=== PATIENT | male | born 1955 | race Caucasian/White ===

== ENCOUNTER 2018-08-14 05:20 | Day surgery (SDC) | payer BC ==
[2018-08-14] MEDS ORDERED: Midazolam 1 MG/ML 2 ML SDV IV ONE ×3 (05:21→06:35)
[2018-08-14] MEDS ORDERED: fentaNYL 100 MCG/2 ML SDV IV ONE ×3 (05:21→06:34)
[2018-08-14] MEDS ORDERED: Dextrose 5%-0.45% NaCl 1,000 ML IV SCH (05:54)
[2018-08-14] MEDS ORDERED: Midazolam 1 MG/ML 2 ML SDV ONE (06:16)
[2018-08-14] MEDS ORDERED: fentaNYL 100 MCG/2 ML SDV ONE (06:17)
--- NOTE | 2018-08-14 13:00 | OR ---
DATE: 08/14/2018 PROCEDURE PERFORMED: Esophagogastroduodenoscopy and NBI. INSTRUMENT USED: [id number]-[id number] Olympus video panendoscope. PREMEDICATIONS: Fentanyl 100 mcg intravenous, Versed 2 mg intravenous. The procedure was done under pulse oximetry, BP recording, and personnel monitor. INDICATION: The patient with unexplained iron-deficiency. Esophagogastroduodenoscopy was performed for detection of any active erosive lesions, Benitez esophagus and/or malignancy also under consideration, small bowel biopsies to be obtained for celiac disease if indicated, endoscopic hemostasis therapy if needed. DESCRIPTION OF PROCEDURE: The scope was passed with ease. Adequate visualization of the esophagus was made from proximal to distal areas. No upper esophageal lesions identified. No distal esophageal stricture. No uphill or downhill esophageal varices. No Afia-Byrne tear. No evidence of erosive esophagitis by [place] criteria. No esophageal polyp or tumor mass identified. Z-line was seen at around 40 cm distal to the oral verge. No proximal gastric varices noted. Paraesophageal hiatal hernia was noted. Scattered Augustin's erosions were seen without bleeding from them, NBI views were obtained. Photographs were taken. No gastric ulcer, malignant mass, or vascular ectasia identified. Duodenal bulb showed no ulcer. Visualized second part of the duodenum was unremarkable. No bleeding was noted from any of the visualized areas at the completion of examination. Photographs were taken of the duodenal bulb, gastric antrum, fundus, and distal esophagus. IMPRESSION: 1. Paraesophageal hiatal hernia. 2. Augustin's erosions. The patient tolerated the procedure well. [facility] /[id number]
--- NOTE | 2018-08-14 13:36 | LETTER ---
08/14/2018 Tania Birch MD [facility] [address] [facility] [place] [address] RE: JUSTICE ACHARYA : [address] Birch: Mr. Justice Acharya had esophagogastroduodenoscopy done this morning and he tolerated the procedure well. I herewith send a copy of the endoscopy note and photographs for your review. He is put on omeprazole 20 mg p.o. daily. Thank you. Sincerely, [facility] /[id number]
== END 2018-08-14 08:45 | disposition home or self-care (01) ==
LOC: DL.ENDO 05:20
PROVIDERS: ATTEND Internal Medicine Gastroenterology
DX: D50.9 Iron deficiency anemia, unspecified (principal); K25.9 Gastric ulcer, unspecified as acute or chronic, without hemorrhage or perforation; K44.9 Diaphragmatic hernia without obstruction or gangrene; I10 Essential (primary) hypertension; E78.5 Hyperlipidemia, unspecified; K43.9 Ventral hernia without obstruction or gangrene; C91.90 Lymphoid leukemia, unspecified not having achieved remission; F41.1 Generalized anxiety disorder; Z79.899 Other long term (current) drug therapy
CPT/HCPCS: 43235; J7042; J2250; J3010

== ENCOUNTER 2018-08-16 05:20 | Day surgery (SDC) | payer BC ==
[2018-08-16] MEDS ORDERED: Midazolam 1 MG/ML 2 ML SDV IV ONE ×5 (05:21→06:35)
[2018-08-16] MEDS ORDERED: fentaNYL 100 MCG/2 ML SDV IV ONE ×3 (05:21→06:29)
[2018-08-16] MEDS ORDERED: Dextrose 5%-0.45% NaCl 1,000 ML IV SCH (05:50)
[2018-08-16] MEDS ORDERED: Midazolam 1 MG/ML 2 ML SDV ONE (06:15)
[2018-08-16] MEDS ORDERED: fentaNYL 100 MCG/2 ML SDV ONE (06:15)
--- NOTE | 2018-08-16 07:40 | OR ---
DATE: 08/16/2018 PROCEDURE: Total colonoscopy. INSTRUMENT USED: [id number] Olympus video colonoscope. PREMEDICATIONS: Fentanyl 100 mcg intravenous and versed 3 mg intravenous. 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 INDICATION: The patient with iron deficiency. Colonoscopic examination is done for detection of any polypoid lesions and removal, endoscopic hemostasis therapy if needed. DESCRIPTION OF PROCEDURE: Initial rectal exam showed considerable anal sphincter spasm. Limited rigid anoscopic examination was unremarkable. The colonoscope was passed with ease up to the ileocecal area, photographs were taken of the normal appearing cecum, identified by double-bulged ileocecal folds. No bleeding was noted from any of the visualized areas at the commencement of the examination. The bowel preparation was found to be adequate, [place] Scale 3. No stricture, no vascular ectasia. No large isolated ulceration seen. No evidence of diffuse inflammatory bowel disease in the form of friability, contact bleeding, or ulcerations. No polyp or tumor mass identified. Probing the proximal sides of folds and flexures, using adequate distention and clearing up the stool material, withdrawal of the scope was made. [id number] time over 6 minutes. No bleeding was noted from any of the visualized areas at the completion of the examination. IMPRESSION: Normal study. The patient tolerated the procedure well. [facility] /[id number]
--- NOTE | 2018-08-16 12:48 | LETTER ---
08/16/2018 Tania Birch MD [facility] [address] [place] [address] RE: JUSTICE ACHARYA : [address] Birch: Mr. Justice Acharya had colonoscopic examination done this morning and he tolerated the procedure well. I herewith send a copy of the endoscopy note and photographs for your review. Thank you. Sincerely, [facility] /[id number]
== END 2018-08-16 08:39 | disposition home or self-care (01) ==
LOC: DL.ENDO 05:20
PROVIDERS: ATTEND Internal Medicine Gastroenterology
DX: D50.9 Iron deficiency anemia, unspecified (principal); I10 Essential (primary) hypertension; E78.5 Hyperlipidemia, unspecified; C91.90 Lymphoid leukemia, unspecified not having achieved remission; K43.9 Ventral hernia without obstruction or gangrene; F41.1 Generalized anxiety disorder
CPT/HCPCS: 45378; J2250; J3010; J7042

== ENCOUNTER 2019-12-08 12:28 | Emergency (ER) | payer BC ==
--- NOTE | 2019-12-08 12:26 | EDM.PDOC ---
ED HPI GENERAL MEDICAL PROBLEM - General Chief Complaint: Abdominal Pain Stated Complaint: RIGHT SIDE AB PAIN Time Seen by Provider: 12/08/19 12:30 Source of Information: Reports: Patient, Provider History Limitations: Reports: No Limitations - History of Present Illness INITIAL COMMENTS - FREE TEXT/NARRATIVE: This 63 yo male patient was sent to the ED by Dr. Richter due to right sided abdominal pain that has been getting worse. Dr. Richter assessed the patient in the clinic and referred the patient to the ED due to the above pain, tachycardia and a temp of 99.5. The patient reports his abdominal pain started on 12/06/19 and has been getting worse. The patient reports his pain is more of an irritant unless he gets up and walks around. The patient reports increased pain with stepping on his right foot. The patient reports he had a piece of toast and a glass of water this morning at 0930. The patient has a history of hypertension, hyperlipidemia, CLL and GERD. Onset: Other Onset Date: 12/06/19 Duration: Intermittent Location: Reports: Abdomen Quality: Reports: Ache, Sharp Severity: Moderate Improves with: Reports: None Worsens with: Reports: None Context: Reports: Other Associated Symptoms: Reports: No Other Symptoms Right Abdomen Pain Score (Numeric/FACES): 5 - Related Data Allergies Allergy/AdvReac Type Severity Reaction Status Date / Time No Known Allergies Allergy Verified 08/15/18 11:10 Home Meds: Home Meds Bromfenac Sodium 1 drop EYERT BEDTIME 08/14/18 [History] Finasteride 5 mg PO BEDTIME 08/14/18 [History] Moexipril [Univasc] 15 mg PO DAILY 08/14/18 [History] Multivitamin [Multi-Vitamin Daily] 1 tab PO DAILY 08/14/18 [History] Tamsulosin [Flomax] 0.4 mg PO BEDTIME 08/14/18 [History] atorvaSTATin [Lipitor] 5 mg PO BEDTIME 08/14/18 [History] hydroCHLOROthiazide [Hydrochlorothiazide] 25 mg PO DAILY 08/14/18 [History] Omeprazole 20 mg PO DAILY 08/16/18 [History] Past Medical History HEENT History: Reports: Other (See Below) Other HEENT History: retina tear Cardiovascular History: Reports: High Cholesterol, Hypertension Respiratory History: Reports: None Gastrointestinal History: Reports: Hemorrhoids Genitourinary History: Reports: BPH Musculoskeletal History: Reports: None Neurological History: Reports: None Psychiatric History: Reports: None Endocrine/Metabolic History: Reports: None Hematologic History: Reports: Anemia Immunologic History: Reports: None Oncologic (Cancer) History: Reports: Leukemia, Other (See Below) Other Oncologic History: CLL Dermatologic History: Reports: None - Infectious Disease History Infectious Disease History: Reports: Chicken Pox, Measles, Other (See Below) Other Infectious Disease History: bacterial infection in colon - Past Surgical History Head Surgeries/Procedures: Reports: None HEENT Surgical History: Reports: Other (See Below) Other HEENT Surgeries/Procedures: repair of retina tear Cardiovascular Surgical History: Reports: None Respiratory Surgical History: Reports: None GI Surgical History: Reports: Colonoscopy, Hernia, Inguinal Male Surgical History: Reports: Prostate Biopsy Social & Family History - Tobacco Use Smoking Status *Q: Never Smoker Second Hand Smoke Exposure: No - Caffeine Use Caffeine Use: Reports: None Caffeine Use Comment: 4 cups daily - Recreational Drug Use Recreational Drug Use: No ED ROS GENERAL - Review of Systems Review Of Systems: Comprehensive ROS is negative, except as noted in HPI. ED EXAM, GI/ABD - Physical Exam Exam: See Below Exam Limited By: No Limitations General Appearance: Alert, WD/WN, Moderate Distress Eyes: Bilateral: Normal Appearance, EOMI Ears: Normal External Exam, Normal Canal, Hearing Grossly Normal, Normal TMs Nose: Normal Inspection, Normal Mucosa, No Blood Throat/Mouth: Normal Inspection, Normal Lips, Normal Teeth, Normal Gums, Normal Oropharynx, Normal Voice, No Airway Compromise Head: Atraumatic, Normocephalic Neck: Normal Inspection, Supple, Non-Tender, Full Range of Motion Respiratory/Chest: No Respiratory Distress, Lungs Clear, Normal Breath Sounds, No Accessory Muscle Use, Chest Non-Tender Cardiovascular: Normal Peripheral Pulses, Regular Rate, Rhythm, No Edema, No Gallop, No JVD, No Murmur, No Rub GI/Abdominal Exam: Normal Bowel Sounds, No Organomegaly, No Distention, No Abnormal Bruit, Tender (RLQ) (Male) Exam: Deferred Rectal (Males) Exam: Deferred Back Exam: Normal Inspection, Full Range of Motion, NT Extremities: Normal Inspection, Normal Range of Motion, Non-Tender, Normal Capillary Refill, No Pedal Edema Neurological: Alert, Oriented, CN II-XII Intact, Normal Cognition, Normal Gait, Normal Reflexes, No Motor/Sensory Deficits Psychiatric: Normal Affect, Normal Mood Skin Exam: Warm, Dry, Intact, Normal Color, No Rash Lymphatic: No Adenopathy Course - Vital Signs Last Recorded V/S: Last Vital Signs Temp 37.3 C 12/08/19 12:16 Pulse 104 H 12/08/19 12:16 Resp 18 12/08/19 12:16 BP 154/99 H 12/08/19 12:16 Pulse Ox 94 L 12/08/19 12:16 - Orders/Labs/Meds Orders: Active Orders 24 hr Category Date Time Status CULTURE BLOOD [BC] Stat Lab 12/08/19 12:35 Received UA RFX EULOGIO AND CULT IF INDIC [URIN] Urgent Lab 12/08/19 12:10 Ordered UA W/MICROSCOPIC [URIN] Urgent Lab 12/08/19 12:10 Ordered Labs: Laboratory Tests 12/08/19 12/08/19 12/08/19 Range/Units 12:10 12:35 12:35 WBC 71.7 H* (5.0-10.0) 10^3/uL RBC 5.19 (4.6-6.2) 10^6/uL Hgb 15.7 (14.0-18.0) g/dL Hct 48.9 (40.0-54.0) % MCV 94.2 (80-100) fL MCH 30.3 (27.0-34.0) pg MCHC 32.1 L (33.0-35.0) g/dL Plt Count 232 (150-450) 10^3/uL Neut % (Auto) 13.3 L (42.2-75.2) % Lymph % (Auto) 85.4 H (20.5-50.1) % [place] % (Auto) 1.2 L (2-8) % Eos % (Auto) 0.1 L (1.0-3.0) % Baso % (Auto) 0.0 (0.0-1.0) % Add Manual Diff Yes Neutrophils % (Manual) 12 L (42-75) % Band Neutrophils % 2 % Lymphocytes % (Manual) 85 H (20-50) % Sodium 135 L (136-145) mmol/L Potassium 4.0 (3.5-5.1) mmol/L Chloride 98 (98-107) mmol/L Carbon Dioxide 28 (21-32) mmol/L Anion Gap 13.0 (7-13) mEq/L BUN 26 H (7-18) mg/dL Creatinine 0.94 (0.70-1.30) mg/dL Est Cr Clr Drug Dosing 92.30 mL/min Estimated GFR (MDRD) > 60 BUN/Creatinine Ratio 27.7 (No establ ref range) Glucose 119 H (74-99) mg/dL Lactic Acid (0.4-2.0) mmol/L Calcium 9.5 (8.5-10.1) mg/dL Total Bilirubin 1.4 H (0.2-1.0) mg/dL AST 18 (15-37) U/L ALT 39 (16-63) U/L Alkaline Phosphatase 84 (46-116) U/L Total Protein 8.3 H (6.4-8.2) g/dL Albumin 3.8 (3.4-5.0) g/dL Globulin 4.5 Albumin/Globulin Ratio 0.8 Urine Color Kelsea (YELLOW) Urine Appearance Slightly cloudy (CLEAR) Urine pH 7.0 (5.0-9.0) Ur Specific [place] 1.015 (1.005-1.030) Urine Protein Trace H (NEGATIVE) Urine Glucose (UA) Negative (NEGATIVE) Urine Ketones 15 H (NEGATIVE) Urine Occult Blood Trace-lysed H (NEGATIVE) Urine Nitrite Negative (NEGATIVE) Urine Bilirubin Negative (NEGATIVE) Urine Urobilinogen 0.2 (0.2-1.0) mg/dL Ur Leukocyte Esterase Negative (NEGATIVE) 12/07/ Range/Units 12:35 WBC (5.0-10.0) 10^3/uL RBC (4.6-6.2) 10^6/uL Hgb (14.0-18.0) g/dL Hct (40.0-54.0) % MCV (80-100) fL MCH (27.0-34.0) pg MCHC (33.0-35.0) g/dL Plt Count (150-450) 10^3/uL Neut % (Auto) (42.2-75.2) % Lymph % (Auto) (20.5-50.1) % [place] % (Auto) (2-8) % Eos % (Auto) (1.0-3.0) % Baso % (Auto) (0.0-1.0) % Add Manual Diff Neutrophils % (Manual) (42-75) % Band Neutrophils % % Lymphocytes % (Manual) (20-50) % Sodium (136-145) mmol/L Potassium (3.5-5.1) mmol/L Chloride (98-107) mmol/L Carbon Dioxide (21-32) mmol/L Anion Gap (7-13) mEq/L BUN (7-18) mg/dL Creatinine (0.70-1.30) mg/dL Est Cr Clr Drug Dosing mL/min Estimated GFR (MDRD) BUN/Creatinine Ratio (No establ ref range) Glucose (74-99) mg/dL Lactic Acid 1.1 (0.4-2.0) mmol/L Calcium (8.5-10.1) mg/dL Total Bilirubin (0.2-1.0) mg/dL AST (15-37) U/L ALT (16-63) U/L Alkaline Phosphatase (46-116) U/L Total Protein (6.4-8.2) g/dL Albumin (3.4-5.0) g/dL Globulin Albumin/Globulin Ratio Urine Color (YELLOW) Urine Appearance (CLEAR) Urine pH (5.0-9.0) Ur Specific [place] (1.005-1.030) Urine Protein (NEGATIVE) Urine Glucose (UA) (NEGATIVE) Urine Ketones (NEGATIVE) Urine Occult Blood (NEGATIVE) Urine Nitrite (NEGATIVE) Urine Bilirubin (NEGATIVE) Urine Urobilinogen (0.2-1.0) mg/dL Ur Leukocyte Esterase (NEGATIVE) Meds: Medications Discontinued Medications Generic Name Dose Route Start Last Admin Trade Name Freq PRN Reason Stop Dose Admin Iopamidol 100 ml 12/08/19 13:06 12/08/19 13:35 Isovue-300 (61%) IVPUSH 12/08/19 13:07 100 ml ONETIME ONE Administration Departure - Departure Time of Disposition: 14:37 Disposition: DC/Tfer to Acute Hospital 02 Condition: Serious Clinical Impression: Mass of right kidney - Discharge Information *PRESCRIPTION DRUG MONITORING PROGRAM REVIEWED*: Not Applicable *COPY OF PRESCRIPTION DRUG MONITORING REPORT IN PATIENT KADEN: Not Applicable Forms: ED Department Discharge Care Plan Goals: Discussed the patient's history, examination, lab and CT results with Dr. Orta ([facility] Dr. Orta accepted the patient for continued evaluation and further management as an inpatient at [facility] in [place]. The patient will be transported by [facility]. Sepsis Event Note (ED) - Evaluation Sepsis Screening Result: No Definite Risk - Focused Exam Vital Signs: Vital Signs Temp Pulse Resp BP Pulse Ox 12/08/19 12:16 37.3 C 104 H 18 154/99 H 94 L - My Orders Last 24 Hours: My Active Orders 12/08/19 12:10 UA RFX EULOGIO AND CULT IF INDIC [URIN] Urgent UA W/MICROSCOPIC [URIN] Urgent 12/08/19 12:35 CULTURE BLOOD [BC] Stat - Assessment/Plan Last 24 Hours: My Active Orders 12/08/19 12:10 UA RFX EULOGIO AND CULT IF INDIC [URIN] Urgent UA W/MICROSCOPIC [URIN] Urgent 12/08/19 12:35 CULTURE BLOOD [BC] Stat
[2019-12-08 13:02] LABS: CHLORIDE,CL 98 mmol/L (98-107); SODIUM,NA 135 mmol/L (136-145)
[2019-12-08] MEDS ORDERED: Iopamidol 612 MG/ML 100 ML Bottle IVPUSH ONE (13:06)
--- NOTE | 2019-12-08 14:05 | CT ---
EXAMINATION: Abdomen Pelvis w Cont SEX: Male AGE: 63 years CLINICAL HISTORY: 63-year-old male complaining of right lower quadrant (RLQ) ABDOMINAL PAIN who has (CLL) chronically lymphocytic leukemia (WBC 71,000) and remote history "kidney stone" (1995). Scan technique: Volume acquisition of data from the abdomen and pelvis obtained without oral contrast but during/after intravenous administration 100 cc nonionic Isovue contrast 3 cc/s via injector while patient was lying supine on the Siemens multislice scanner [place], [place]. All data archived in the PACS system for storage, reformatting axial/sagittal/coronal planes and study. Motion. INTERPRETATION: ABNORMAL. 1. Bibasilar lower lobe consolidation (right >left) with underlying air bronchograms RLL. 2. Huge hiatus hernia (most of the stomach extends thru the gastroesophageal hiatus into the left base). 3. *Huge upper pole right renal mass lesion measuring 9.5 cm AP x 8.0 cm W x 8 cm L extending off the anterior upper midpole cortex (central lucency suggesting necrosis or cavitation). No calcifications. 4. No left renal mass lesion. Bilateral renal function. No signs of nephrolithiasis or obstructive uropathy. 5. Abnormally enlarged inhomogeneously dense prostate gland elevating the base of the urinary bladder. 6. No sign of other abdominal or pelvic mass lesion, inflammatory "dirty" peritoneal fat, mesenteric/retroperitoneal lymphadenopathy, mechanical bowel obstruction, ascites or free intraperitoneal air. Note: Right colon and cecum extend from RLQ across lower abdomen toward LLQ. No inflammation. 7. Atheromatous calcifications normal caliber aortoiliac vessels. No aneurysm or dissection. 8. Chronic degenerative disc changes L5-S1. No pathologic skeletal lesion, lumbar fracture or dislocation. CONCLUSION: Large malignant appearing mass right kidney. Inflammatory changes right lung base (clinical pneumonia?). Huge hiatus hernia.
== END 2019-12-08 15:05 ==
LOC: DL.ED 12:28
DX: N28.89 Other specified disorders of kidney and ureter (principal); E78.00 Pure hypercholesterolemia, unspecified; I10 Essential (primary) hypertension; Z79.899 Other long term (current) drug therapy
CPT/HCPCS: 36415; 74177; 80053; 81001; 83605; 85025; 87040; 99285; Q9967; 99284